=== PATIENT | male | born 1990 | race Caucasian/White ===

== ENCOUNTER 2016-09-20 08:09 | Day surgery (SDC) | payer BC ==
[2016-09-17 13:12] VITALS: BMI 33.4
[~2016-09-20 08:09] MED LIST: LACTATED RINGERS 1,000 ML IV SCH
[2016-09-20 08:37] VITALS: TEMP 98
[2016-09-20] MEDS ORDERED: LACTATED RINGERS 1,000 ML IV ONE (08:44)
[2016-09-20] MEDS ORDERED: LIDOCAINE 1% 20 ML VIAL (10MG/ML) FOR IV START INTRADERMA ONE (08:45)
--- NOTE | 2016-09-20 10:09 | P.PCN ---
Date of Procedure: 09/20/16 Preoperative Diagnosis: Postoperative Diagnosis: Procedure(s) Performed: BRIEF HISTORY: Patient is a 26-year-old pleasant white male, scheduled for an elective colonoscopy as a part of evaluation of chronic diarrhea for the last 4 months duration. He has bowel movements anywhere from 10-12 a day which are loose to watery consistency but denies any blood or mucus in the stool. PROCEDURE PERFORMED: Colonoscopy with biopsy. PREOPERATIVE DIAGNOSIS: Chronic diarrhea of 4 months duration. IV sedation per Anesthesia. PROCEDURE: After informed consent was obtained, the patient, was brought into the endoscopy unit. IV sedation was administered by Anesthesia under continuous monitoring. Digital rectal examination was normal. Initially the Olympus CF- 160 flexible video colonoscope was then inserted in the rectum, gradually advanced into the cecum without any difficulty. Careful examination was performed as the scope was gradually being withdrawn. Ileocecal valve and the appendiceal orifice were visualized and appeared normal. Prep was excellent. Terminal ileum was intubated and 20 cm visualized and appeared normal. Mucosa of the cecum, ascending colon, transverse colon, descending colon, sigmoid colon , and rectum appeared normal. Random biopsies were done from the terminal ileum , ascending and descending colon to rule out microscopic/collagenous colitis. Retroflexion was performed in the rectum and no lesions were seen. The patient tolerated the procedure well. IMPRESSION: Normal-appearing colon from rectum to cecum with no evidence of colitis or colon rectal neoplasia. RECOMMENDATIONS: Findings of this examination were discussed with the patient well as his family. He was advised to follow with the biopsy results. In the meantime he was advised to also use [id number] Imodium as needed for the chronic diarrhea. Implants: Indications for Procedure: Operative Findings: Description of Procedure:
[2016-09-20 10:15] VITALS: PULSE 66
[2016-09-20 10:43] VITALS: BP 133/84; RESP 18
== END 2016-09-20 11:06 | disposition home or self-care (01) ==
LOC: ORWHC2ENDO 08:09
PROVIDERS: ATTEND Internal Medicine Gastroenterology
DX: K52.9 Noninfective gastroenteritis and colitis, unspecified (principal); F17.200 Nicotine dependence, unspecified, uncomplicated; Z88.5 Allergy status to narcotic agent
CPT/HCPCS: 45380; 88305

== ENCOUNTER → 2019-01-15 | Outpatient (CLI) | payer BC ==
--- NOTE | 2019-01-16 15:19 | XR ---
EXAMINATION TYPE: XR chest 2V DATE OF EXAM: 01/15/2019 COMPARISON: NONE HISTORY: Sharp intermittent left-sided chest pain with increasing shortness of breath TECHNIQUE: Frontal and lateral views of the chest are obtained. FINDINGS: There is no focal air space opacity, pleural effusion, or pneumothorax seen. The cardiac silhouette size is within normal limits. The osseous structures are intact. IMPRESSION: No acute cardiopulmonary process.
== END ==
LOC: RADXRMAIN 17:03
PROVIDERS: ATTEND Internal Medicine Cardiovascular Disease
DX: J45.909 Unspecified asthma, uncomplicated (principal); R06.02 Shortness of breath
CPT/HCPCS: 71046

== ENCOUNTER 2020-01-06 10:03 | Day surgery (SDC) | payer BC, OTHER ==
[2020-01-04 12:07] VITALS: BMI 33.9
[~2020-01-06 10:03] MED LIST changes: +LIDOCAINE 1% (10MG/ML) FOR IV START INTRADERMA PRN
[2020-01-06 10:44] VITALS: RESP 16; TEMP 98.8
[2020-01-06] MEDS ORDERED: PROPOFOL 10 MG/ML 20 ML VIAL IV ONE (11:19)
--- NOTE | 2020-01-06 11:28 | P.PCN ---
Date of Procedure: 01/06/20 Procedure(s) Performed: BRIEF HISTORY: Patient is a 29-year-old, pleasant, white male scheduled for an upper endoscopy as a part of evaluation of long-standing history of GERD and intermittent episodes of severe epigastric and left upper quadrant abdominal pain. He has been on omeprazole 20 mg daily with some help.. PROCEDURE PERFORMED: Esophagogastroduodenoscopy with biopsy. PREOPERATIVE DIAGNOSIS: Epigastric pain and long-standing history of GERD. IV sedation per anesthesia. PROCEDURE: After informed consent was obtained, the patient was brought into the endoscopy unit. IV sedation was administered by Anesthesia under continuous monitoring. Initially the Olympus GIF-140 video endoscope was inserted into the mouth. Esophagus intubated without any difficulty. It was gradually advanced into the stomach and duodenum and carefully examined. The bulb and the second part of the duodenum appeared normal. Biopsies were done from the duodenum to rule out celiac disease The scope at this time was withdrawn to the stomach, adequately insufflated with air, and upon careful examination, mucosa of the antrum had mild diffuse mottling of the mucosa consistent with gastritis and biopsies were done from this area. The, body, cardia and the fundus appeared normal. The scope was then withdrawn into the esophagus. Small sliding type hiatal hernia noted. The GE junction was located at 39 cm from the incisors. The esophagus appeared normal. There were no erosions or ulcerations seen, biopsies were done from the distal esophagus and the patient tolerated the procedure well. IMPRESSION: 1. Mild antral gastritis. 2. Small sliding type hiatal hernia but no evidence of esophagitis. RECOMMENDATIONS: The findings of this examination were discussed with the patient as well as his family. He was advised to follow with the biopsy resuts. In the meantime he will continue with omeprazole 20 mg daily and follow antireflux measures.
[2020-01-06 11:53] VITALS: BP 125/68; PULSE 77
== END 2020-01-06 12:22 | disposition home or self-care (01) ==
LOC: ORWHC2ENDO 10:03
PROVIDERS: ATTEND Internal Medicine Gastroenterology
DX: K29.50 Unspecified chronic gastritis without bleeding (principal); K44.9 Diaphragmatic hernia without obstruction or gangrene; K21.9 Gastro-esophageal reflux disease without esophagitis; F17.210 Nicotine dependence, cigarettes, uncomplicated; F39 Unspecified mood [affective] disorder; Z88.5 Allergy status to narcotic agent; Z79.899 Other long term (current) drug therapy; Z79.51 Long term (current) use of inhaled steroids
CPT/HCPCS: 88305; 88342; 43239; J2704

== ENCOUNTER 2020-10-23 06:05 | Emergency (ER) | payer OTHER ==
[2020-10-23 06:14] VITALS: RESP 20; TEMP 97.7
[2020-10-23 06:20] VITALS: BP 126/78; PULSE 75
[2020-10-23] MEDS ORDERED: diphenhydrAMINE 50 MG/ML 1 ML VIAL IVP STA (06:22)
[2020-10-23] MEDS ORDERED: ONDANSETRON 4 MG ODT STARTER PACK 2 TAB BTL PO STA (06:22)
[2020-10-23] MEDS ORDERED: METOCLOPRAMIDE 5 MG/ML 2 ML VIAL IVP STA (06:22)
--- NOTE | 2020-10-23 06:23 | ED ---
Nausea/Vomiting/Diarrhea HPI - General Chief complaint: Nausea/Vomiting/Diarrhea Stated complaint: NVD Time Seen by Provider: 10/23/20 06:07 Source: patient, EMS, RN notes reviewed Mode of arrival: EMS Limitations: no limitations - History of Present Illness Initial comments: This a 30-year-old male presents emergency Department with chief complaint of nausea vomiting diarrhea constipation. Patient states symptoms started earlier this evening. Patient states that there are multiple contacts in the household with similar symptoms. Patient was given fluids and Zofran feels greatly improved. He has no localized abdominal pain denies any known fever, cough or cold-like symptoms. No hematemesis copremesis no melena. - Related Data Home Medications Medication Instructions Recorded Confirmed ALPRAZolam [Xanax] 0.25 mg PO DAILY PRN 01/04/20 01/06/20 Albuterol Sulfate [Proair Hfa] 1 - 2 puff INHALATION DAILY PRN 01/04/20 01/06/20 Fluticasone Propion/Salmeterol 2 puff PO DAILY 01/04/20 01/06/20 [Wixela 250-50 Inhub] Omeprazole 40 mg PO DAILY 01/04/20 01/06/20 lamoTRIgine [LaMICtal] 50 mg PO DAILY 01/04/20 01/06/20 Previous Rx's Medication Instructions Recorded Ondansetron Odt [Zofran Odt] 4 mg PO Q8HR PRN #10 tab 10/23/20 Allergies Allergy/AdvReac Type Severity Reaction Status Date / Time codeine Allergy Unknown Verified 01/06/20 10:42 Childhood hydromorphone [From Dilaudid] AdvReac Itching Verified 01/06/20 10:42 Review of Systems ROS Statement: Those systems with pertinent positive or pertinent negative responses have been documented in the HPI. ROS Other: All systems not noted in ROS Statement are negative. Past Medical History Past Medical History: Asthma, GERD/Reflux Additional Past Medical History / Comment(s): CHRONIC DIARRHEA FOR LAST SEVERAL MONTHS WITH ABD. PAIN History of Any Multi-Drug Resistant Organisms: MRSA Date of last positivie culture/infection: rt upper thigh MDRO Source:: 2012 Past Surgical History: Appendectomy Additional Past Surgical History / Comment(s): HEMORRHOIDECTOMY. COLONOSCOPY Past Anesthesia/Blood Transfusion Reactions: No Reported Reaction Past Psychological History: Anxiety Smoking Status: Vaper Past Alcohol Use History: Occasional Past Drug Use History: Marijuana - Past Family History Mother Family Medical History: No Reported History General Exam General appearance: alert, in no apparent distress Head exam: Present: atraumatic, normocephalic, normal inspection Eye exam: Present: normal appearance, PERRL, EOMI. Absent: scleral icterus, conjunctival injection, periorbital swelling ENT exam: Present: normal exam, normal oropharynx, mucous membranes moist Neck exam: Present: normal inspection. Absent: tenderness, meningismus, lymphadenopathy Respiratory exam: Present: normal lung sounds bilaterally. Absent: respiratory distress, wheezes, rales, rhonchi, stridor Cardiovascular Exam: Present: regular rate, normal rhythm, normal heart sounds. Absent: systolic murmur, diastolic murmur, rubs, gallop, clicks GI/Abdominal exam: Present: soft, normal bowel sounds. Absent: distended, tenderness, guarding, rebound, rigid Course Vital Signs 10/23/20 10/23/20 06:08 06:14 Temperature 97.7 F Pulse Rate 72 75 Respiratory 20 20 Rate Blood Pressure 135/81 126/78 O2 Sat by Pulse 95 96 Oximetry Medical Decision Making - Medical Decision Making 30-year-old presented for nausea vomiting diarrhea. Patient has gastric enteritis. Patient feels improved after antiemetics has no abdominal pain vitals are stable be discharged in stable condition return parameters were discussed. Disposition Clinical Impression: Gastroenteritis Disposition: HOME SELF-CARE Condition: Stable Instructions (If sedation given, give patient instructions): Gastroenteritis (ED) Additional Instructions: Please return to the Emergency Department if symptoms worsen or any other concerns. Prescriptions: Ondansetron Odt [Zofran Odt] 4 mg PO Q8HR PRN #10 tab PRN Reason: Nausea Is patient prescribed a controlled substance at d/c from ED?: No Referrals: Val Ordaz DO [Primary Care Provider] - 1-2 days Time of Disposition: 06:23
== END 2020-10-23 06:39 | disposition home or self-care (01) ==
LOC: EC 06:05
DX: K52.9 Noninfective gastroenteritis and colitis, unspecified (principal); J45.909 Unspecified asthma, uncomplicated; K21.9 Gastro-esophageal reflux disease without esophagitis; F41.9 Anxiety disorder, unspecified; F17.290 Nicotine dependence, other tobacco product, uncomplicated; F12.90 Cannabis use, unspecified, uncomplicated; Z90.49 Acquired absence of other specified parts of digestive tract; Z88.5 Allergy status to narcotic agent
CPT/HCPCS: 99284; 96374; 96375; J1200; J2765; S0119

== ENCOUNTER → 2021-02-16 | Outpatient (CLI) | payer OTHER ==
--- NOTE | 2021-02-16 08:56 | CT ---
EXAMINATION TYPE: CT iac wo con DATE OF EXAM: 02/16/2021 COMPARISON: NONE HISTORY: Orbit nodule subcutaneous CT DLP: 142.70 mGycm. Automated Exposure Control for Dose Reduction was Utilized. TECHNIQUE: CT scan of internal auditory canal is performed without contrast, thin cut axial images ar e obtained, coronal reformatted images are also reviewed. FINDINGS: The external auditory canals are patent bilaterally. Mastoid air cells show no evidence of abnormal opacification bilaterally. The middle ear ossicles are symmetric and unremarkable. There is no evidence of suspicious surroundi ng soft tissue density to suggest cholesteatoma. The scutum is preserved bilaterally. The cochlea and the semicircular canals are symmetric and unremarkable. Vestibular aqueduct and inte rnal carotid canal appear unremarkable. Temporomandibular joints are maintained bilaterally. Nearly completely opacified right maxillary sinu s without bony destruction . Mild Patchy fluid in the anterior right ethmoid sinuses. Remainder paran mariza sinuses are clear. IMPRESSION: Right maxillary sinus disease otherwise unremarkable study.
== END | disposition home or self-care (01) ==
LOC: RADCTMAIN 08:06
PROVIDERS: ATTEND Family Medicine
DX: J32.9 Chronic sinusitis, unspecified (principal)
CPT/HCPCS: 70480

== ENCOUNTER → 2022-01-08 | Outpatient (CLI) | payer OTHER ==
--- NOTE | 2022-01-08 13:04 | US ---
EXAMINATION TYPE: US carotid duplex BILAT DATE OF EXAM: 01/08/2022 COMPARISON: NONE CLINICAL HISTORY: R42 Dizziness. Dizziness and memory loss. Hx of head injury in 2012. TECHNIQUE: Carotid duplex ultrasound examination. Indirect Doppler criteria was utilized. FINDINGS: EXAM MEASUREMENTS: RIGHT: Peak Systolic Velocity (PSV) cm/sec ----- Right CCA: 113 ----- Right ICA: 114 ----- Right ECA: 131 ICA/CCA ratio: 1.01 RIGHT: End Diastole cm/sec ----- Right CCA: 35.6 ----- Right ICA: 38.2 ----- Right ECA: 22.1 LEFT: Peak Systolic Velocity (PSV) cm/sec ----- Left CCA: 136 ----- Left ICA: 119 ----- Left ECA: 130 ICA/CCA ratio: 0.88 LEFT: End Diastole cm/sec ----- Left CCA: 36.4 ----- Left ICA: 47.2 ----- Left ECA: 24.0 VERTEBRALS (direction of flow): Right Vertebral: Antegrade Left Vertebral: Antegrade Rhythm: Normal FIELD SERVICE ENGINEER NOTES: Elevated velocities noted within bilateral CCA and Bilateral ECA. IMPRESSION: 1. No significant flow-limiting stenosis Criteria for Assigning % of Stenosis / Diameter reduction (Estimation based on the indirect measurements of the internal carotid artery velocities (ICA PSV). 1. Normal (no stenosis)=ICA PSV < 125 cm/s: ratio < 2.0: ICA EDV<40 cm/s. 2. Less than 50% stenosis=ICA PSV < 125 cm/s: ratio < 2.0: ICA EDV<40 cm/s. 3. 50 to 69% stenosis=ICA PSV of 125 to 230 cm/s: ration 2.0 ? 4.0: ICA EDV 40-100 cm/s. 4. Greater than 70% stenosis to near occlusion= ICA PSV > 230 cm/s: ratio > 4.0: ICA EDV > 100 cm/s. 5. Near occlusion= ICA PSV velocities may be low or undetectable: variable ratio and ICA EDV. 6. Total occlusion=unable to detect flow.
== END | disposition home or self-care (01) ==
LOC: RADUSWWP 11:00
PROVIDERS: ATTEND Psychiatry & Neurology Neurology
DX: R42 Dizziness and giddiness (principal); R41.3 Other amnesia
CPT/HCPCS: 93880

== ENCOUNTER → 2023-02-14 | Outpatient (CLI) | payer BC, OTHER ==
--- NOTE | 2023-02-14 13:09 | XR ---
EXAMINATION TYPE: XR knee 4V LT DATE OF EXAM: 02/14/2023 COMPARISON: NONE HISTORY: Pain TECHNIQUE: Three views are submitted. FINDINGS: Joint spaces are preserved. Osseous structures are intact. No acute fracture seen. Small amount of fluid in the suprapatellar bursa. IMPRESSION: 1. No acute fracture or dislocation. Small amount of fluid in the suprapatellar bursa can be associa tico with internal derangement of the knee correlate clinically.
== END | disposition home or self-care (01) ==
LOC: RADXRMAIN 12:40
PROVIDERS: ATTEND Pediatrics
DX: M25.562 Pain in left knee (principal)